=== PATIENT | female | born 1955 | race Caucasian/White ===

== ENCOUNTER 2016-07-18 15:14 | Outpatient (CLI) | payer OTHER | END 2016-07-18 15:15 | disposition home or self-care (01) | DX: Z12.31 Encounter for screening mammogram for malignant neoplasm of breast (principal) ==

== ENCOUNTER 2016-08-05 07:21 | Outpatient (CLI) | payer OTHER | END 2016-08-05 07:22 | disposition home or self-care (01) | DX: E11.65 Type 2 diabetes mellitus with hyperglycemia (principal); E55.9 Vitamin D deficiency, unspecified; Z79.899 Other long term (current) drug therapy ==

== ENCOUNTER 2016-12-29 11:07 | Outpatient (CLI) | payer OTHER ==
--- NOTE | 2016-12-29 13:03 | XRAY Report ---
THREE-VIEW LEFT FOOT: 12/29/2016 CLINICAL INDICATION: Pain. FINDINGS: AP, lateral, oblique views of the left foot demonstrate mild osteoarthritis of the interph alangeal joints. There is no evidence of fracture or dislocation. No radiopaque foreign body is see n in the soft tissues. IMPRESSION: MILD OSTEOARTHRITIS. JOB #: [id number] EXT JOB #:[id number]
== END 2016-12-29 11:08 | disposition home or self-care (01) ==
LOC: DI 11:07
PROVIDERS: ATTEND Nurse Practitioner Primary Care
DX: M19.072 Primary osteoarthritis, left ankle and foot (principal)

== ENCOUNTER 2017-03-03 07:54 | Outpatient (CLI) | payer OTHER ==
[2017-03-03 08:21] LABS: BASOPHILS % (AUTO) 0.6 %; EOSINOPHILS # (AUTO) 0.2 10^3/uL (0.0-0.7); EOSINOPHILS % (AUTO) 2.3 %; HCT - HEMATOCRIT 35.6 % (37.0-47.0); HGB - HEMOGLOBIN 11.9 g/dL (12.0-16.0); LYMPHOCYTES # (AUTO) 2.9 10^3/uL (1.5-3.5); LYMPHOCYTES % (AUTO) 44.2 %; MEAN CORPUSCULAR HEMOGLOBIN 29.9 pg (27.0-31.0); MEAN CORPUSCULAR HGB CONC 33.5 g/dL (32.0-36.0); MEAN CORPUSCULAR VOLUME 89.3 fL (81.0-99.0); MEAN PLATELET VOLUME 7.1 fL (7.9-10.8); MONOCYTES # (AUTO) 0.4 10^3/uL (0.0-1.0); MONOCYTES % (AUTO) 6.5 %; NEUTROPHILS # (AUTO) 3.1 10^3/uL (1.5-6.6); NEUTROPHILS % (AUTO) 46.4 %; RED BLOOD COUNT 3.98 10^6/uL (4.20-5.40); RED CELL DISTRIBUTION WIDTH 13.9 % (12.0-15.0); UNCORRECTED WHITE BLOOD COUNT 6.6 x10^3/uL; WHITE BLOOD COUNT 6.6 x10^3/uL (4.8-10.8)
[2017-03-03 08:39] LABS: HEMOGLOBIN A1C 1.08 g/dL
[2017-03-03 08:41] LABS: BILIRUBIN,TOTAL 0.6 mg/dL (0.2-1.0); BUN - BLOOD UREA NITROGEN 14 mg/dL (6-20); CALCIUM 9.1 mg/dL (8.5-10.3); CARBON DIOXIDE - CO2 27 mmol/L (21-32); CHLORIDE 101 mmol/L (101-111); CHOL/HDL RATIO 4.6 (<4.4); CHOLESTEROL 221 mg/dL; CREATININE 0.7 mg/dL (0.4-1.0); GFR - MDRD 85 (>89); GLUCOSE 172 mg/dL (70-100); HDL CHOLESTEROL 48 mg/dL; POTASSIUM 3.9 mmol/L (3.5-5.0); SODIUM 138 mmol/L (135-145); TOTAL PROTEIN 7.9 g/dL (6.7-8.2); TRIGLYCERIDES 144 mg/dL; VLDL CHOLESTEROL 29 mg/dL
== END 2017-03-03 07:55 | disposition home or self-care (01) ==
LOC: LAB 07:54
PROVIDERS: ATTEND Physician Assistant Medical
DX: R79.89 Other specified abnormal findings of blood chemistry (principal); E55.9 Vitamin D deficiency, unspecified; D53.9 Nutritional anemia, unspecified; E11.9 Type 2 diabetes mellitus without complications; F41.8 Other specified anxiety disorders; E78.5 Hyperlipidemia, unspecified; Z11.59 Encounter for screening for other viral diseases; Z79.899 Other long term (current) drug therapy
CPT/HCPCS: 36415; 80053; 80061; 82306; 83036; 84443; 85025; 86803

== ENCOUNTER 2017-03-07 12:47 | Outpatient (CLI) | payer OTHER ==
[2017-03-07 17:56] LABS: BILIRUBIN,URINE NEGATIVE (NEGATIVE)
[2017-03-07 19:22] LABS: UA w/ MICROSCOPIC CHARGE YES
[2017-03-07 19:23] LABS: UR CULTURE IF IND NOT INDICATED; WBC,URINE 0-3 /HPF (0-5)
== END 2017-03-07 12:48 | disposition home or self-care (01) ==
LOC: LAB.R 12:47
PROVIDERS: ATTEND Physician Assistant Medical
DX: R35.0 Frequency of micturition (principal)
CPT/HCPCS: 81001; 81003; 87086

== ENCOUNTER 2017-04-28 10:04 | Outpatient (CLI) | payer OTHER ==
[2017-04-28 10:44] LABS: CREATININE 0.7 mg/dL (0.4-1.0)
== END 2017-04-28 10:05 | disposition home or self-care (01) ==
LOC: LAB 10:04
PROVIDERS: ATTEND Physician Assistant Medical
DX: E11.65 Type 2 diabetes mellitus with hyperglycemia (principal)
CPT/HCPCS: 36415; 82565; 84520

== ENCOUNTER 2017-05-17 05:57 | Outpatient (CLI) | payer OTHER ==
[2017-05-17 19:02] LABS: HB2 TOTAL 12.4 g/dL; HEMOGLOBIN A1C 0.96 g/dL; HEMOGLOBIN A1C % 9.2 % (4.6-6.2)
== END 2017-05-17 05:58 | disposition home or self-care (01) ==
LOC: LAB.R 05:57
PROVIDERS: ATTEND Physician Assistant Medical
DX: E55.9 Vitamin D deficiency, unspecified (principal); E11.65 Type 2 diabetes mellitus with hyperglycemia; Z79.899 Other long term (current) drug therapy
CPT/HCPCS: 82306; 83036

== ENCOUNTER 2017-06-01 08:00 | Outpatient (CLI) | payer OTHER | END 2017-06-01 08:01 | disposition home or self-care (01) | LOC: LAB.R 08:00 | PROVIDERS: ATTEND Internal Medicine | DX: R05 Cough (principal) | CPT/HCPCS: 87275; 87276 ==

== ENCOUNTER 2017-08-15 09:49 | Outpatient (CLI) | payer OTHER ==
--- NOTE | 2017-08-15 18:07 | Mammography Report ---
DIGITAL SCREENING MAMMOGRAM: 08/15/2017 HISTORY: Benign right breast biopsy for routine screening. COMPARISON: 07/18/2016, 05/05/2015, 04/15/2014, 04/22/2013, 04/26/2012, 2010, and 03/20/2010. TECHNIQUE: Bilateral digital CC and MLO projections. FINDINGS: There are scattered fibroglandular densities. Scattered benign- appearing bilateral calcifications are similar to previous. No dominant mass, architectural distortion, skin thickening, suspicious clustered microcalcifications or obvious interval change is appreciated. IMPRESSION: NEGATIVE. BIRADS category: 1, negative. Suggest return to routine screening in 12 months. STANDARD QUALIFYING STATEMENTS 1. This examination was reviewed with the aid of Computed-Aided Detection (CAD) . 2. A negative or benign imaging report should not delay biopsy if clinically suspicious findings are present. Consider surgical consultation if warranted. More than 5 % of cancers are not identified by imaging. 3. Dense breasts may obscure an underlying neoplasm. TD: 08/15/2017 18:06 SHRUTHI
== END 2017-08-15 09:50 | disposition home or self-care (01) ==
LOC: DI 09:49
PROVIDERS: ATTEND Physician Assistant Medical
DX: Z12.31 Encounter for screening mammogram for malignant neoplasm of breast (principal)
CPT/HCPCS: 77067

== ENCOUNTER 2017-09-26 06:36 | Outpatient (CLI) | payer OTHER ==
[2017-09-26 07:05] LABS: HB2 TOTAL 13.4 g/dL; HEMOGLOBIN A1C 0.88 g/dL; HEMOGLOBIN A1C % 8.2 % (4.6-6.2)
== END 2017-09-26 06:37 | disposition home or self-care (01) ==
LOC: LAB 06:36
PROVIDERS: ATTEND Physician Assistant Medical
DX: E55.9 Vitamin D deficiency, unspecified (principal); E11.65 Type 2 diabetes mellitus with hyperglycemia; Z79.899 Other long term (current) drug therapy
CPT/HCPCS: 36415; 82306; 82947; 83036

== ENCOUNTER 2017-11-27 15:27 | Outpatient (CLI) | payer OTHER ==
--- NOTE | 2017-11-28 16:42 | DEXA Report ---
Procedure Date: 11/27/2017 Accession Number: [id number] / [id number] Procedure: DEX - Dexa Forearm CPT Code: FULL RESULT: EXAM: Dexa Spine and/or Hip, Dexa Forearm DATE: 11/27/2017 4:10 PM CLINICAL HISTORY: POSTMENOPAUSAL TECHNIQUE: Dual energy x-ray absorptiometry (DXA) was performed on a [employer] System. Regions measured are the AP Spine, femoral neck, and if needed forearm. COMPARISON: None. In accordance with the International Society for Clinical Densitometry (ISCD) guidelines, data from previous exams may be reanalyzed using current recommendations and techniques. This is done to allow a more accurate basis for comparison with the current study. FINDINGS: The data for the lumbar spine is as follows: BMD (g/cm/cm) T-SCORE Z-SCORE REGION L1 0.972 -1.3 0.0 L2 1.199 0.0 1.3 L3 1.326 1.0 2.3 L4 1.169 -0.3 1.0 TOTAL 1.168 -0.1 1.2 NOTE: All evaluable vertebrae are used for classification The data for the hip is as follows: BMD (g/cm/cm) T-SCORE Z-SCORE REGION Neck 0.851 -1.3 -0.1 TOTAL 0.914 -0.7 0.2 NOTE: The femoral neck or total proximal femur, whichever is lowest, is used for classification. The data for the left forearm is as follows: BMD (g/cm/cm) T-SCORE Z-SCORE REGION 1/3 76 -2.4 -1.2 NOTE: The 33% radius of the nondominant forearm is used for classification. * Denotes significant change at the 95% confidence level. Denotes dissimilar scan types or analysis methods. IMPRESSION: THE WHO CLASSIFICATION BASED ON THE INTERNATIONAL REFERENCE STANDARD IS OSTEOPENIA. THE FRACTURE RISK IS INCREASED. Please note that comparison to a previously performed DEXA from 2012 is not possible due to differences in equipment. RECOMMENDATION: Patients with diagnosis of osteoporosis or osteopenia should have regular bone mineral density assessment. For those eligible for Medicare, routine testing is allowed once every 2 years. Testing frequency can be increased for patients who have rapidly progressing disease or for those who are receiving medical therapy to restore bone mass. COMMENT: World Health Organization (WHO) definitions for osteoporosis and osteopenia: NORMAL BMD: T-score at -1.0 or higher, fracture risk is low OSTEOPENIA BMD: T-score between -1.0 and -2.5, fracture risk is increased. OSTEOPOROSIS BMD: T-score at -2.5 or lower, fracture risk is high. National Osteoporosis Foundation recommends: 1. Obtain adequate dietary calcium (at least 1200 mg per day) and vitamin D (400-800 international units per day). 2. Participate, as appropriate, in regular weightbearing and muscle-strengthening exercise. 3. Avoid tobacco use and reduce alcohol and caffeine intake. 4. For more detailed information see the website at www.NOF.org.
--- NOTE | 2017-11-28 16:42 | DEXA Report ---
Procedure Date: 11/27/2017 Accession Number: [id number] / [id number] Procedure: DEX - Dexa Spine and/or Hip CPT Code: FULL RESULT: EXAM: Dexa Spine and/or Hip, Dexa Forearm DATE: 11/27/2017 4:10 PM CLINICAL HISTORY: POSTMENOPAUSAL TECHNIQUE: Dual energy x-ray absorptiometry (DXA) was performed on a [employer] System. Regions measured are the AP Spine, femoral neck, and if needed forearm. COMPARISON: None. In accordance with the International Society for Clinical Densitometry (ISCD) guidelines, data from previous exams may be reanalyzed using current recommendations and techniques. This is done to allow a more accurate basis for comparison with the current study. FINDINGS: The data for the lumbar spine is as follows: BMD (g/cm/cm) T-SCORE Z-SCORE REGION L1 0.972 -1.3 0.0 L2 1.199 0.0 1.3 L3 1.326 1.0 2.3 L4 1.169 -0.3 1.0 TOTAL 1.168 -0.1 1.2 NOTE: All evaluable vertebrae are used for classification The data for the hip is as follows: BMD (g/cm/cm) T-SCORE Z-SCORE REGION Neck 0.851 -1.3 -0.1 TOTAL 0.914 -0.7 0.2 NOTE: The femoral neck or total proximal femur, whichever is lowest, is used for classification. The data for the left forearm is as follows: BMD (g/cm/cm) T-SCORE Z-SCORE REGION 1/3 76 -2.4 -1.2 NOTE: The 33% radius of the nondominant forearm is used for classification. * Denotes significant change at the 95% confidence level. Denotes dissimilar scan types or analysis methods. IMPRESSION: THE WHO CLASSIFICATION BASED ON THE INTERNATIONAL REFERENCE STANDARD IS OSTEOPENIA. THE FRACTURE RISK IS INCREASED. Please note that comparison to a previously performed DEXA from 2012 is not possible due to differences in equipment. RECOMMENDATION: Patients with diagnosis of osteoporosis or osteopenia should have regular bone mineral density assessment. For those eligible for Medicare, routine testing is allowed once every 2 years. Testing frequency can be increased for patients who have rapidly progressing disease or for those who are receiving medical therapy to restore bone mass. COMMENT: World Health Organization (WHO) definitions for osteoporosis and osteopenia: NORMAL BMD: T-score at -1.0 or higher, fracture risk is low OSTEOPENIA BMD: T-score between -1.0 and -2.5, fracture risk is increased. OSTEOPOROSIS BMD: T-score at -2.5 or lower, fracture risk is high. National Osteoporosis Foundation recommends: 1. Obtain adequate dietary calcium (at least 1200 mg per day) and vitamin D (400-800 international units per day). 2. Participate, as appropriate, in regular weightbearing and muscle-strengthening exercise. 3. Avoid tobacco use and reduce alcohol and caffeine intake. 4. For more detailed information see the website at www.NOF.org.
== END 2017-11-27 15:28 | disposition home or self-care (01) ==
LOC: DI 15:27
PROVIDERS: ATTEND Physician Assistant Medical
DX: M85.89 Other specified disorders of bone density and structure, multiple sites (principal); R79.89 Other specified abnormal findings of blood chemistry; E55.9 Vitamin D deficiency, unspecified
CPT/HCPCS: 77080; 77081

== ENCOUNTER 2018-02-08 06:36 | Outpatient (CLI) | payer OTHER ==
[2018-02-08 06:56] LABS: BASOPHILS % (AUTO) 0.6 %; EOSINOPHILS # (AUTO) 0.2 10^3/uL (0.0-0.7); EOSINOPHILS % (AUTO) 3.2 %; LYMPHOCYTES # (AUTO) 2.3 10^3/uL (1.5-3.5); LYMPHOCYTES % (AUTO) 43.2 %; MEAN CORPUSCULAR HGB CONC 33.6 g/dL (32.0-36.0); MEAN CORPUSCULAR VOLUME 89.2 fL (81.0-99.0); MONOCYTES # (AUTO) 0.4 10^3/uL (0.0-1.0); MONOCYTES % (AUTO) 7.7 %; NEUTROPHILS # (AUTO) 2.4 10^3/uL (1.5-6.6); NEUTROPHILS % (AUTO) 45.3 %; PLT - PLATELET COUNT 219 10^3/uL (130-450); RED BLOOD COUNT 4.01 10^6/uL (4.20-5.40); RED CELL DISTRIBUTION WIDTH 13.8 % (12.0-15.0); WHITE BLOOD COUNT 5.3 x10^3/uL (4.8-10.8)
[2018-02-08 07:14] LABS: ALBUMIN 3.8 g/dL (3.2-5.5); ALBUMIN/GLOBULIN RATIO 0.9 (1.0-2.2); ALKALINE PHOSPHATASE 101 IU/L (42-121); ALT ALANINE AMINOTRANSFERASE 34 IU/L (10-60); AST ASPARTATE AMINOTRANSFERASE 31 IU/L (10-42); BILIRUBIN,TOTAL 0.6 mg/dL (0.2-1.0); BUN - BLOOD UREA NITROGEN 18 mg/dL (6-20); CALCIUM 9.1 mg/dL (8.5-10.3); CARBON DIOXIDE - CO2 29 mmol/L (21-32); CHLORIDE 102 mmol/L (101-111); CHOL/HDL RATIO 4.5 (<4.4); CHOLESTEROL 228 mg/dL; CREATININE 0.9 mg/dL (0.4-1.0); GFR - MDRD 63 (>89); GLUCOSE 152 mg/dL (70-100); HDL CHOLESTEROL 51 mg/dL; LDL CHOLESTEROL,CALCULATED 148 mg/dL; LDL/HDL RATIO 2.9 (<4.4); SODIUM 139 mmol/L (135-145); TOTAL PROTEIN 7.9 g/dL (6.7-8.2); VLDL CHOLESTEROL 29 mg/dL
[2018-02-08 07:26] LABS: THYROID STIMULATING HORMONE 4.43 uIU/mL (0.34-5.60)
[2018-02-08 07:43] LABS: HB2 TOTAL 12.7 g/dL; HEMOGLOBIN A1C 0.98 g/dL; HEMOGLOBIN A1C % 9.2 % (4.6-6.2)
== END 2018-02-08 06:37 | disposition home or self-care (01) ==
LOC: LAB 06:36
PROVIDERS: ATTEND Physician Assistant Medical
DX: Z00.00 Encounter for general adult medical examination without abnormal findings (principal); E11.9 Type 2 diabetes mellitus without complications; E78.2 Mixed hyperlipidemia; E55.9 Vitamin D deficiency, unspecified; Z79.899 Other long term (current) drug therapy
CPT/HCPCS: 36415; 80053; 80061; 82306; 83036; 83721; 83970; 84443; 85025

== ENCOUNTER 2018-07-10 08:11 | Outpatient (CLI) | payer BC ==
[2018-07-10 09:48] LABS: HB2 TOTAL 13.1 g/dL; HEMOGLOBIN A1C 1.03 g/dL; HEMOGLOBIN A1C % 9.3 % (4.6-6.2)
== END 2018-07-10 08:12 | disposition home or self-care (01) ==
LOC: LAB 08:11
PROVIDERS: ATTEND Physician Assistant Medical
DX: E11.65 Type 2 diabetes mellitus with hyperglycemia (principal); Z79.899 Other long term (current) drug therapy
CPT/HCPCS: 36415; 82043; 82947; 83036

== ENCOUNTER 2018-10-31 10:06 | Outpatient (CLI) | payer BC ==
[2018-10-31 10:43] LABS: HB2 TOTAL 11.8 g/dL; HEMOGLOBIN A1C 0.93 g/dL; HEMOGLOBIN A1C % 9.4 % (4.6-6.2)
== END 2018-10-31 10:07 | disposition home or self-care (01) ==
LOC: LAB 10:06
PROVIDERS: ATTEND Registered Nurse
DX: E11.9 Type 2 diabetes mellitus without complications (principal)
CPT/HCPCS: 36415; 83036

== ENCOUNTER 2019-01-25 08:45 | Outpatient (CLI) | payer BC ==
[2019-01-25 09:24] LABS: ALBUMIN 3.7 g/dL (3.2-5.5); ALBUMIN/GLOBULIN RATIO 0.9 (1.0-2.2); ALKALINE PHOSPHATASE 95 IU/L (42-121); ALT ALANINE AMINOTRANSFERASE 24 IU/L (10-60); AST ASPARTATE AMINOTRANSFERASE 23 IU/L (10-42); BILIRUBIN,TOTAL 0.7 mg/dL (0.2-1.0); BUN - BLOOD UREA NITROGEN 13 mg/dL (6-20); CARBON DIOXIDE - CO2 28 mmol/L (21-32); CHLORIDE 105 mmol/L (101-111); CHOL/HDL RATIO 3.2 (<4.4); CHOLESTEROL 156 mg/dL; CREATININE 0.7 mg/dL (0.4-1.0); GFR - MDRD 84 (>89); GLUCOSE 139 mg/dL (70-100); HDL CHOLESTEROL 49 mg/dL; LDL CHOLESTEROL,CALCULATED 89 mg/dL; LDL/HDL RATIO 1.8 (<4.4); SODIUM 142 mmol/L (135-145); TOTAL PROTEIN 7.7 g/dL (6.7-8.2); VLDL CHOLESTEROL 18 mg/dL
[2019-01-25 09:25] LABS: HB2 TOTAL 11.9 g/dL; HEMOGLOBIN A1C 0.92 g/dL; HEMOGLOBIN A1C % 9.2 % (4.6-6.2)
== END 2019-01-25 08:46 | disposition home or self-care (01) ==
LOC: LAB 08:45
PROVIDERS: ATTEND Registered Nurse
DX: E11.9 Type 2 diabetes mellitus without complications (principal); E55.9 Vitamin D deficiency, unspecified
CPT/HCPCS: 36415; 80053; 80061; 82306; 83036; 83721

== ENCOUNTER 2019-07-31 06:39 | Outpatient (CLI) | payer BC ==
[2019-07-31 08:45] LABS: HB2 TOTAL 11.7 g/dL; HEMOGLOBIN A1C 0.84 g/dL; HEMOGLOBIN A1C % 8.7 % (4.6-6.2)
[2019-07-31 09:02] LABS: ALBUMIN 3.6 g/dL (3.2-5.5); ALBUMIN/GLOBULIN RATIO 0.9 (1.0-2.2); ALKALINE PHOSPHATASE 96 IU/L (42-121); ALT ALANINE AMINOTRANSFERASE 17 IU/L (10-60); AST ASPARTATE AMINOTRANSFERASE 20 IU/L (10-42); BILIRUBIN,TOTAL 0.5 mg/dL (0.2-1.0); BUN - BLOOD UREA NITROGEN 18 mg/dL (6-20); CARBON DIOXIDE - CO2 27 mmol/L (21-32); CHLORIDE 104 mmol/L (101-111); CHOL/HDL RATIO 3.7 (<4.4); CHOLESTEROL 161 mg/dL; CREATININE 0.7 mg/dL (0.4-1.0); GLUCOSE 137 mg/dL (70-100); HDL CHOLESTEROL 43 mg/dL; LDL CHOLESTEROL,CALCULATED 96 mg/dL; LDL/HDL RATIO 2.2 (<4.4); SODIUM 140 mmol/L (135-145); TOTAL PROTEIN 7.6 g/dL (6.7-8.2); VLDL CHOLESTEROL 22 mg/dL
== END 2019-07-31 06:40 | disposition home or self-care (01) ==
LOC: LAB 06:39
PROVIDERS: ATTEND Physician Assistant
DX: I10 Essential (primary) hypertension (principal); E21.3 Hyperparathyroidism, unspecified; E78.2 Mixed hyperlipidemia; E11.65 Type 2 diabetes mellitus with hyperglycemia
CPT/HCPCS: 36415; 80053; 80061; 83036; 83721; 83970

== ENCOUNTER 2019-11-05 06:31 | Outpatient (CLI) | payer BC ==
[2019-11-05 07:04] LABS: ALBUMIN 3.8 g/dL (3.2-5.5); ALBUMIN/GLOBULIN RATIO 1.1 (1.0-2.2); CREATININE 0.6 mg/dL (0.4-1.0); TOTAL PROTEIN 7.4 g/dL (6.7-8.2)
[2019-11-05 11:16] LABS: HB2 TOTAL 11.9 g/dL; HEMOGLOBIN A1C 0.88 g/dL; HEMOGLOBIN A1C % 8.9 % (4.6-6.2)
== END 2019-11-05 06:32 | disposition home or self-care (01) ==
LOC: LAB 06:31
PROVIDERS: ATTEND Physician Assistant
DX: E11.65 Type 2 diabetes mellitus with hyperglycemia (principal)
CPT/HCPCS: 36415; 80053; 83036

== ENCOUNTER 2019-11-14 16:12 | Outpatient (CLI) | payer BC ==
--- NOTE | 2019-11-18 13:23 | Mammography Report ---
BILATERAL DIGITAL SCREENING MAMMOGRAM 3D/2D: 11/14/2019 CLINICAL: Routine screening. Comparison is made to exams dated: 08/15/2017 mammogram, 07/18/2016 mammogram, and 05/05/2015 mammogram - [facility]. There are scattered fibroglandular elements in both breasts. No significant masses, calcifications, or other findings are seen in either breast. There has been no significant interval change. IMPRESSION: NEGATIVE There is no mammographic evidence of malignancy. A 1 year screening mammogram is recommended. This exam was interpreted at Station ID: [id number]. NOTE: For mammograms, a report in lay terms will be sent to the patient. Approximately 15% of breast malignancies will not be visualized mammographically. In the management of a palpable breast mass, a negative mammogram must not discourage biopsy of a clinically suspicious lesion. Electronically Signed By: Obi Ovalles M.D. slc/penrad:11/14/2019 19:10:46 ACR BI-RADS Category 1: Negative 3341F PARENCHYMAL PATTERN: (A) - The breast(s) demonstrate(s) scattered fibroglandular densities. BI-RADS CATEGORY: (1) - 1 RECOMMENDATION: (ANNUAL) - Recommend routine annual screening mammography. [id number] 1 year screening LATERALITY: (B)
== END 2019-11-14 16:13 | disposition home or self-care (01) ==
LOC: DI 16:12
PROVIDERS: ATTEND Registered Nurse
DX: Z12.31 Encounter for screening mammogram for malignant neoplasm of breast (principal)
CPT/HCPCS: 77063; 77067

== ENCOUNTER 2020-01-31 07:39 | Outpatient (CLI) | payer BC ==
--- NOTE | 2020-01-31 16:44 | DEXA Report ---
PROCEDURE: Dexa Spine and/or Hip INDICATIONS: HYPERPARATHYROIDISM TECHNIQUE: Dual energy x-ray absorptiometry (DXA) was performed on a [employer] System. Regions measur ed are the AP Spine, femoral neck, and if needed forearm. COMPARISON: DEXA 11/27/2017 FINDINGS: Lumbar Spine: Bone Mineral Density 1.087 g/cm/cm,T score -0.8, compared to -1.0 on prior exam. Left Hip: Bone Mineral Density 0.911 g/cm/cm,T score -0.8, compared to -0.7 on prior exam. Left Femoral Neck: Bone Mineral Density 0.838 g/cm/cm, T score -1.4, compared to -1.3 on prior exam. Left forearm total: Bone Mineral Density 0.5-3 g/cm/cm, T score -2.5, compared to -2.5 on prior exam. (T score greater or equal to -1.0: NORMAL) (T score from -1.1 to -2.4: OSTEOPENIA) (T score less than or equal to -2.5 to: OSTEOPOROSIS) Impression: Persistent relatively stable osteoporosis within the forearm. Patients with diagnosis of osteoporosis or osteopenia should have regular bone mineral density assess ment. For those eligible for Medicare, routine testing is allowed once every 2 years. Testing frequ ency can be increased for patients who have rapidly progressing disease or for those who are receivin g medical therapy to restore bone mass. Reviewed by: Christine Torres MD on 01/31/2020 4:42 PM PDT Approved by: Christine Torres MD on 01/31/2020 4:42 PM PDT Station ID: [id number]
== END 2020-01-31 07:40 | disposition home or self-care (01) ==
LOC: DI 07:39
PROVIDERS: ATTEND Registered Nurse
DX: E21.3 Hyperparathyroidism, unspecified (principal); M81.0 Age-related osteoporosis without current pathological fracture
CPT/HCPCS: 77080; 77081

== ENCOUNTER 2020-02-27 12:12 | Outpatient (CLI) | payer BC | END 2020-02-27 12:13 | disposition home or self-care (01) | LOC: LAB 12:12 | PROVIDERS: ATTEND Nurse Practitioner Family | DX: R35.0 Frequency of micturition (principal) | CPT/HCPCS: 87086 ==

== ENCOUNTER 2020-03-19 10:36 | Outpatient (CLI) | payer BC ==
[2020-03-19 13:32] LABS: BASOPHILS % (AUTO) 0.6 %; EOSINOPHILS # (AUTO) 0.2 10^3/uL (0.0-0.7); EOSINOPHILS % (AUTO) 3.4 %; LYMPHOCYTES # (AUTO) 3.5 10^3/uL (1.5-3.5); LYMPHOCYTES % (AUTO) 48.7 %; MEAN CORPUSCULAR HEMOGLOBIN 29.6 pg (27.0-31.0); MEAN CORPUSCULAR HGB CONC 32.2 g/dL (32.0-36.0); MEAN CORPUSCULAR VOLUME 92.2 fL (81.0-99.0); MEAN PLATELET VOLUME 8.8 fL (7.9-10.8); MONOCYTES # (AUTO) 0.5 10^3/uL (0.0-1.0); NEUTROPHILS # (AUTO) 2.9 10^3/uL (1.5-6.6); PLT - PLATELET COUNT 214 10^3/uL (130-450); RED BLOOD COUNT 3.71 10^6/uL (4.20-5.40); RED CELL DISTRIBUTION WIDTH 13.2 % (12.0-15.0); WHITE BLOOD COUNT 7.1 x10^3/uL (4.8-10.8)
[2020-03-23 12:01] LABS: HEMOGLOBIN A1c% 8.6 % (4.27-6.07)
== END 2020-03-19 10:37 | disposition home or self-care (01) ==
LOC: LAB 10:36
PROVIDERS: ATTEND Nurse Practitioner
DX: R25.1 Tremor, unspecified (principal); D53.9 Nutritional anemia, unspecified; E11.65 Type 2 diabetes mellitus with hyperglycemia; R79.89 Other specified abnormal findings of blood chemistry; E55.9 Vitamin D deficiency, unspecified
CPT/HCPCS: 36415; 80053; 82306; 83036; 85025

== ENCOUNTER 2020-06-02 07:43 | Outpatient (CLI) | payer BC ==
[2020-06-02 08:14] LABS: ALBUMIN 4.1 g/dL (3.2-5.5); BILIRUBIN,TOTAL 0.8 mg/dL (0.2-1.0); CALCIUM 9.2 mg/dL (8.5-10.3); CREATININE 0.7 mg/dL (0.4-1.0); TOTAL PROTEIN 8.2 g/dL (6.7-8.2)
== END 2020-06-02 07:44 | disposition home or self-care (01) ==
LOC: LAB 07:43
PROVIDERS: ATTEND Nurse Practitioner
DX: E55.9 Vitamin D deficiency, unspecified (principal); R25.1 Tremor, unspecified; R79.89 Other specified abnormal findings of blood chemistry; D53.9 Nutritional anemia, unspecified; E11.65 Type 2 diabetes mellitus with hyperglycemia; Z79.899 Other long term (current) drug therapy
CPT/HCPCS: 36415; 80053; 82306; 83036

== ENCOUNTER 2020-06-08 08:00 | Outpatient (CLI) | payer BC ==
[2020-06-08 12:34] LABS: BILIRUBIN,URINE NEGATIVE (NEGATIVE); GLUCOSE, URINE (UA) >=1000 mg/dL (NEGATIVE); KETONES,URINE (UA) NEGATIVE (NEGATIVE); LEUKOCYTE ESTERASE, URINE NEGATIVE (NEGATIVE); NITRITE,URINE NEGATIVE (NEGATIVE); OCCULT BLOOD,URINE NEGATIVE (NEGATIVE); PH,URINE 5.5 PH (5.0-7.5); PROTEIN,URINE NEGATIVE (NEGATIVE); UROBILINOGEN,URINE 0.2 (NORMAL) E.U./dL (NORMAL)
[2020-06-08 12:35] LABS: CLARITY,URINE CLEAR (CLEAR)
[2020-06-08 12:45] LABS: RBC,URINE 0-5 /HPF (0-5); SQUAMOUS EPITHELIAL CELL,UR FEW Squamous (<= Few)
[2020-06-08 12:46] LABS: BACTERIA,URINE Few /HPF (None Seen)
== END 2020-06-08 23:59 | disposition home or self-care (01) ==
LOC: LAB.R 08:00
PROVIDERS: ATTEND Nurse Practitioner
DX: R30.0 Dysuria (principal)
CPT/HCPCS: 81001; 87086

== ENCOUNTER 2020-08-20 07:33 | Outpatient (CLI) | payer BC ==
[2020-08-20 08:05] LABS: BASOPHILS % (AUTO) 0.5 %; EOSINOPHILS # (AUTO) 0.2 10^3/uL (0.0-0.7); EOSINOPHILS % (AUTO) 3.1 %; HCT - HEMATOCRIT 35.3 % (37.0-47.0); HGB - HEMOGLOBIN 11.1 g/dL (12.0-16.0); LYMPHOCYTES # (AUTO) 2.5 10^3/uL (1.5-3.5); LYMPHOCYTES % (AUTO) 44.1 %; MEAN CORPUSCULAR HEMOGLOBIN 29.5 pg (27.0-31.0); MEAN CORPUSCULAR HGB CONC 31.4 g/dL (32.0-36.0); MEAN CORPUSCULAR VOLUME 93.9 fL (81.0-99.0); MEAN PLATELET VOLUME 9.2 fL (7.9-10.8); MONOCYTES # (AUTO) 0.4 10^3/uL (0.0-1.0); MONOCYTES % (AUTO) 7.2 %; NEUTROPHILS # (AUTO) 2.5 10^3/uL (1.5-6.6); NEUTROPHILS % (AUTO) 44.9 %; PLT - PLATELET COUNT 243 10^3/uL (130-450); RED BLOOD COUNT 3.76 10^6/uL (4.20-5.40); RED CELL DISTRIBUTION WIDTH 13.5 % (12.0-15.0); WHITE BLOOD COUNT 5.6 x10^3/uL (4.8-10.8)
[2020-08-20 08:27] LABS: ALBUMIN 3.9 g/dL (3.2-5.5); BILIRUBIN,TOTAL 0.5 mg/dL (0.2-1.0); CALCIUM 9.3 mg/dL (8.5-10.3); CREATININE 0.7 mg/dL (0.4-1.0)
[2020-08-20 10:19] LABS: ESTIMATED AVERAGE GLUCOSE 189 mg/dL (70-100); HEMOGLOBIN A1c% 8.2 % (4.27-6.07)
== END 2020-08-20 07:34 | disposition home or self-care (01) ==
LOC: LAB 07:33
PROVIDERS: ATTEND Nurse Practitioner
DX: E11.8 Type 2 diabetes mellitus with unspecified complications (principal); Z79.899 Other long term (current) drug therapy; D53.9 Nutritional anemia, unspecified; E55.9 Vitamin D deficiency, unspecified
CPT/HCPCS: 36415; 80053; 82306; 82728; 83036; 83540; 84466; 85025

== ENCOUNTER 2020-11-06 14:27 | Outpatient (CLI) | payer BC ==
[2020-11-06 15:21] LABS: THYROID STIMULATING HORMONE 2.8 uIU/mL (0.34-5.60)
[2020-11-06 15:32] LABS: FOLATE 16.31 ng/mL (5.90 - >24.8)
[2020-11-10 14:42] LABS: ALBUMIN 3.7 g/dL (3.8-4.8); ALPHA 1 GLOBULIN 0.3 g/dL (0.2-0.3); ALPHA 2 GLOBULIN 0.8 g/dL (0.5-0.9); BETA 1 GLOBULIN 0.6 g/dL (0.4-0.6); BETA 2 GLOBULIN 0.6 g/dL (0.2-0.5); GAMMA GLOBULIN 1.2 g/dL (0.8-1.7)
== END 2020-11-06 14:28 | disposition home or self-care (01) ==
LOC: LAB 14:27
PROVIDERS: ATTEND Psychiatry & Neurology Neurology
DX: R25.1 Tremor, unspecified (principal)
CPT/HCPCS: 36415; 81599; 82607; 82746; 83921; 84155; 84165; 84443; 86334

== ENCOUNTER 2020-11-25 07:38 | Outpatient (CLI) | payer BC ==
[2020-11-25 09:08] LABS: CALCIUM 8.7 mg/dL (8.5-10.3); CREATININE 0.6 mg/dL (0.4-1.0); POTASSIUM 4.3 mmol/L (3.5-5.0)
[2020-11-25 12:00] LABS: ESTIMATED AVERAGE GLUCOSE 189 mg/dL (70-100); HEMOGLOBIN A1c% 8.2 % (4.27-6.07)
== END 2020-11-25 07:39 | disposition home or self-care (01) ==
LOC: LAB 07:38
PROVIDERS: ATTEND Family Medicine
DX: E11.8 Type 2 diabetes mellitus with unspecified complications (principal); R03.0 Elevated blood-pressure reading, without diagnosis of hypertension; E55.9 Vitamin D deficiency, unspecified
CPT/HCPCS: 36415; 80048; 83036

== ENCOUNTER 2021-01-27 16:26 | Outpatient (CLI) | payer BC ==
--- NOTE | 2021-01-27 16:54 | XRAY Report ---
PROCEDURE: Foot 3 View BILAT INDICATIONS: BILATERAL FOOT PAIN TECHNIQUE: 6 views of the foot were acquired. COMPARISON: Left foot radiograph dated 12/29/2016 FINDINGS: Bones: There is mild bilateral hallux valgus. Mild osteoarthritic changes in bilateral first MTP rafael nts are seen worse on the right side. Osteoarthritic changes also noted involving bilateral first thr ough fifth interphalangeal joints. Bilateral plantar calcaneal enthesophyte. No fractures or dislocat ions. No suspicious bony lesions. Soft tissues: No tibiotalar joint effusion. Achilles tendon appears normal. IMPRESSION: Mild bilateral hallux valgus and bilateral forefoot joint osteoarthritis more prominent in bilateral first MTP joints. No fracture or dislocation. Small bilateral plantar calcaneal enthesophytes. Reviewed by: Zachary Lloyd MD on 01/27/2021 4:53 PM PDT Approved by: Zachary Lloyd MD on 01/27/2021 4:53 PM PDT Station ID: [id number]
== END 2021-01-27 16:27 | disposition home or self-care (01) ==
LOC: DI 16:26
PROVIDERS: ATTEND Podiatrist
DX: M19.072 Primary osteoarthritis, left ankle and foot (principal); M19.071 Primary osteoarthritis, right ankle and foot; M20.12 Hallux valgus (acquired), left foot; M20.11 Hallux valgus (acquired), right foot; M77.32 Calcaneal spur, left foot; M77.31 Calcaneal spur, right foot

== ENCOUNTER 2021-05-17 06:42 | Outpatient (CLI) | payer BC ==
[2021-05-17 07:12] LABS: CHOL/HDL RATIO 3.8 (<4.4); CHOLESTEROL 199 mg/dL; HDL CHOLESTEROL 52 mg/dL; LDL CHOLESTEROL,CALCULATED 125 mg/dL; LDL/HDL RATIO 2.4 (<4.4); TRIGLYCERIDES 110 mg/dL; VLDL CHOLESTEROL 22 mg/dL
[2021-05-17 09:20] LABS: ESTIMATED AVERAGE GLUCOSE 194 mg/dL (70-100); HEMOGLOBIN A1c% 8.4 % (4.27-6.07)
== END 2021-05-17 06:43 | disposition home or self-care (01) ==
LOC: LAB 06:42
PROVIDERS: ATTEND Nurse Practitioner
DX: E11.42 Type 2 diabetes mellitus with diabetic polyneuropathy (principal); E78.2 Mixed hyperlipidemia; E11.8 Type 2 diabetes mellitus with unspecified complications
CPT/HCPCS: 36415; 80061; 83036; 83721

== ENCOUNTER 2021-05-31 07:30 | Outpatient (CLI) | payer BC ==
--- NOTE | 2021-06-01 08:19 | Mammography Report ---
BILATERAL DIGITAL SCREENING MAMMOGRAM 3D/2D: 05/31/2021 CLINICAL: Routine screening. Comparison is made to exams dated: 11/14/2019 mammogram, 08/15/2017 mammogram, 07/18/2016 mammogram, 05/05 mammogram, 04/15/2014 mammogram, and 04/22/2013 mammogram - [facility]. There are scattered fibroglandular elements in both breasts. No significant masses, calcifications, or other findings are seen in either breast. There has been no significant interval change. IMPRESSION: NEGATIVE There is no mammographic evidence of malignancy. A 1 year screening mammogram is recommended. This exam was interpreted at Station ID: [id number]. NOTE: For mammograms, a report in lay terms will be sent to the patient. Approximately 15% of breast malignancies will not be visualized mammographically. In the management of a palpable breast mass, a negative mammogram must not discourage biopsy of a clinically suspicious lesion. Electronically Signed By: Edwin bernal/maki:05/31/2021 09:39:59 ACR BI-RADS Category 1: Negative 3341F PARENCHYMAL PATTERN: (A) - The breast(s) demonstrate(s) scattered fibroglandular densities. BI-RADS CATEGORY: (1) - 1 RECOMMENDATION: (ANNUAL) - Recommend routine annual screening mammography. [id number] 1 year screening LATERALITY: (B)
== END 2021-05-31 07:31 | disposition home or self-care (01) ==
LOC: DI 07:30
DX: Z12.31 Encounter for screening mammogram for malignant neoplasm of breast (principal)

== ENCOUNTER 2021-08-18 07:25 | Outpatient (CLI) | payer BC ==
[2021-08-18 10:17] LABS: ESTIMATED AVERAGE GLUCOSE 171 mg/dL (70-100); HEMOGLOBIN A1c% 7.6 % (4.27-6.07)
== END 2021-08-18 07:26 | disposition home or self-care (01) ==
LOC: LAB 07:25
PROVIDERS: ATTEND Nurse Practitioner
DX: E11.40 Type 2 diabetes mellitus with diabetic neuropathy, unspecified (principal)
CPT/HCPCS: 36415; 83036

== ENCOUNTER 2021-10-22 11:41 | Outpatient (CLI) | payer BC ==
[2021-10-22 12:44] LABS: BASOPHILS # (AUTO) 0.1 10^3/uL (0.0-0.1); BASOPHILS % (AUTO) 0.7 %; EOSINOPHILS # (AUTO) 0.2 10^3/uL (0.0-0.7); EOSINOPHILS % (AUTO) 2.1 %; HCT - HEMATOCRIT 36.4 % (37.0-47.0); HGB - HEMOGLOBIN 11.6 g/dL (12.0-16.0); LYMPHOCYTES # (AUTO) 3.1 10^3/uL (1.5-3.5); LYMPHOCYTES % (AUTO) 41.2 %; MEAN CORPUSCULAR HEMOGLOBIN 30.3 pg (27.0-31.0); MEAN CORPUSCULAR HGB CONC 31.9 g/dL (32.0-36.0); MEAN PLATELET VOLUME 8.9 fL (7.9-10.8); MONOCYTES # (AUTO) 0.6 10^3/uL (0.0-1.0); MONOCYTES % (AUTO) 7.3 %; NEUTROPHILS # (AUTO) 3.6 10^3/uL (1.5-6.6); NEUTROPHILS % (AUTO) 48.4 %; PLT - PLATELET COUNT 221 10^3/uL (130-450); RED BLOOD COUNT 3.83 10^6/uL (4.20-5.40); RED CELL DISTRIBUTION WIDTH 12.8 % (12.0-15.0); WHITE BLOOD COUNT 7.5 x10^3/uL (4.8-10.8)
[2021-10-22 13:14] LABS: THYROID STIMULATING HORMONE 3.27 uIU/mL (0.34-5.60)
== END 2021-10-22 11:42 | disposition home or self-care (01) ==
LOC: LAB 11:41
PROVIDERS: ATTEND Psychiatry & Neurology Neurology
DX: G25.2 Other specified forms of tremor (principal); R53.82 Chronic fatigue, unspecified
CPT/HCPCS: 36415; 82607; 82746; 83921; 84443; 85025

== ENCOUNTER 2022-03-02 12:44 | Outpatient (CLI) | payer BC ==
[2022-03-02 19:57] LABS: ESTIMATED AVERAGE GLUCOSE 177 mg/dL (70-100); HEMOGLOBIN A1c% 7.8 % (4.27-6.07)
== END 2022-03-02 12:45 | disposition home or self-care (01) ==
LOC: LAB 12:44
PROVIDERS: ATTEND Nurse Practitioner
DX: E11.8 Type 2 diabetes mellitus with unspecified complications (principal)
CPT/HCPCS: 36415; 83036

== ENCOUNTER 2022-05-31 13:23 | Outpatient (CLI) | payer BC ==
--- NOTE | 2022-05-31 15:49 | DEXA Report ---
PROCEDURE: Dexa Spine and/or Hip INDICATIONS: POSTMENOPAUSAL TECHNIQUE: Dual energy x-ray absorptiometry (DXA) was performed on a [employer] System. Regions measur ed are the AP Spine, femoral neck, and if needed forearm. COMPARISON: None. FINDINGS: Lumbar Spine: Bone Mineral Density 1.113 g/cm/cm,T score -0.6, normal Left Femoral Neck: Bone Mineral Density 0.811 g/cm/cm, T score -1.6, osteopenia Total Hip: Bone Mineral Density 0.915 g/cm/cm,T score -0.7, normal Left forearm: Bone Mineral Density 0.644 g/cm/cm, T score -2.6, osteoporosis (T score greater or equal to -1.0: NORMAL) (T score from -1.1 to -2.4: OSTEOPENIA) (T score less than or equal to -2.5 to: OSTEOPOROSIS) IMPRESSION: 1. Osteoporosis. 2. No statistically significant change compared to prior. Patients with diagnosis of osteoporosis or osteopenia should have regular bone mineral density assess ment. For those eligible for Medicare, routine testing is allowed once every 2 years. Testing frequ ency can be increased for patients who have rapidly progressing disease or for those who are receivin g medical therapy to restore bone mass. Reviewed by: Santi Qiu on 05/31/2022 3:47 PM PST Approved by: Santi Qiu on 05/31/2022 3:47 PM PST Station ID: [id number]
== END 2022-05-31 13:24 | disposition home or self-care (01) ==
LOC: DI 13:23
PROVIDERS: ATTEND Nurse Practitioner
DX: Z78.0 Asymptomatic menopausal state (principal); M81.0 Age-related osteoporosis without current pathological fracture

== ENCOUNTER 2022-05-31 13:23 | Outpatient (CLI) | payer BC ==
--- NOTE | 2022-06-01 11:56 | Mammography Report ---
BILATERAL DIGITAL SCREENING MAMMOGRAM 3D/2D: 05/31/2022 CLINICAL: Routine screening. Comparison is made to exams dated: 05/31/2021 mammogram, 11/14/2019 mammogram, 08/15/2017 mammogram, 2016 mammogram, and 05/05/2015 mammogram - [facility]. There are scattered areas of fibroglandular density in both breasts (category b / 25%-50% glandular t issue). There are benign post operative findings in the right breast. No significant masses, calcifications, or other findings are seen in either breast. There has been no significant interval change. IMPRESSION: BENIGN There is no mammographic evidence of malignancy. A 1 year screening mammogram is recommended. Based on the Tyrer Cuzick model (a risk assessment model) the patients lifetime risk is 4.2% and her 10 year risk is 2.2%. According to the ACR, ACS, and NCCN guidelines, an annual breast MRI exam elton g with mammogram is recommended if the patients lifetime risk is 20% or greater. This exam was interpreted at Station ID: [id number]. NOTE: For mammograms, a report in lay terms will be sent to the patient. Approximately 15% of breast malignancies will not be visualized mammographically. In the management of a palpable breast mass, a negative mammogram must not discourage biopsy of a clinically suspicious lesion. Electronically Signed By: Brisa monroe/maki:05/31/2022 18:09:19 ACR BI-RADS Category 2: Benign Finding(s) 3342F PARENCHYMAL PATTERN: (A) - The breast(s) demonstrate(s) scattered fibroglandular densities. BI-RADS CATEGORY: (2) - 2 RECOMMENDATION: (ANNUAL) - Recommend routine annual screening mammography. [id number] 1 year screening LATERALITY: (B)
== END 2022-05-31 13:24 | disposition home or self-care (01) ==
LOC: DI 13:23
PROVIDERS: ATTEND Nurse Practitioner
DX: Z12.31 Encounter for screening mammogram for malignant neoplasm of breast (principal)

== ENCOUNTER 2022-08-11 10:30 | Outpatient (CLI) | payer MEDICARE, OTHER ==
[2022-08-11 11:06] LABS: BASOPHILS % (AUTO) 0.4 %; EOSINOPHILS # (AUTO) 0.1 10^3/uL (0.0-0.7); EOSINOPHILS % (AUTO) 1.2 %; HCT - HEMATOCRIT 36.9 % (37.0-47.0); HGB - HEMOGLOBIN 11.3 g/dL (12.0-16.0); LYMPHOCYTES % (AUTO) 36.5 %; MEAN CORPUSCULAR HEMOGLOBIN 28.8 pg (27.0-31.0); MEAN CORPUSCULAR HGB CONC 30.6 g/dL (32.0-36.0); MEAN CORPUSCULAR VOLUME 94.1 fL (81.0-99.0); MEAN PLATELET VOLUME 8.9 fL (7.9-10.8); MONOCYTES # (AUTO) 0.5 10^3/uL (0.0-1.0); MONOCYTES % (AUTO) 6.5 %; NEUTROPHILS # (AUTO) 4.5 10^3/uL (1.5-6.6); NEUTROPHILS % (AUTO) 55.2 %; PLT - PLATELET COUNT 229 10^3/uL (130-450); RED BLOOD COUNT 3.92 10^6/uL (4.20-5.40); RED CELL DISTRIBUTION WIDTH 13.3 % (12.0-15.0); WHITE BLOOD COUNT 8.1 x10^3/uL (4.8-10.8)
[2022-08-11 11:37] LABS: ALBUMIN 3.6 g/dL (3.2-5.5); ALBUMIN/GLOBULIN RATIO 0.8 (1.0-2.2); ALKALINE PHOSPHATASE 97 IU/L (42-121); ALT ALANINE AMINOTRANSFERASE 26 IU/L (10-60); AST ASPARTATE AMINOTRANSFERASE 28 IU/L (10-42); BILIRUBIN,TOTAL 0.5 mg/dL (0.2-1.0); BUN - BLOOD UREA NITROGEN 18 mg/dL (6-20); CALCIUM 8.9 mg/dL (8.5-10.3); CARBON DIOXIDE - CO2 28 mmol/L (21-32); CHLORIDE 106 mmol/L (101-111); CHOL/HDL RATIO 3.1 (<4.4); CHOLESTEROL 150 mg/dL; CREATININE 0.6 mg/dL (0.4-1.0); GFR - MDRD 100 (>89); GLUCOSE 83 mg/dL (70-100); HDL CHOLESTEROL 48 mg/dL; LDL CHOLESTEROL,CALCULATED 88 mg/dL; LDL/HDL RATIO 1.8 (<4.4); SODIUM 142 mmol/L (135-145); TRIGLYCERIDES 70 mg/dL; VLDL CHOLESTEROL 14 mg/dL
[2022-08-11 11:38] LABS: CREATININE,URINE 474.5 mg/dL; MICROALBUM/CREATININE RATIO,UR 4.6 ug/mg (<30.0); MICROALBUMIN,URINE 2.2 mg/dL (0-300.0)
[2022-08-11 11:42] LABS: THYROID STIMULATING HORMONE 1.64 uIU/mL (0.34-5.60)
[2022-08-11 12:12] LABS: ESTIMATED AVERAGE GLUCOSE 174 mg/dL (70-100); HEMOGLOBIN A1c% 7.7 % (4.27-6.07)
== END 2022-08-11 10:31 | disposition home or self-care (01) ==
LOC: LAB 10:30
PROVIDERS: ATTEND Nurse Practitioner
DX: E11.8 Type 2 diabetes mellitus with unspecified complications (principal); E78.2 Mixed hyperlipidemia; I10 Essential (primary) hypertension
CPT/HCPCS: 36415; 80053; 80061; 82043; 82570; 83036; 83721; 84443; 85025

== ENCOUNTER 2022-09-06 14:55 | Outpatient (CLI) | payer MEDICARE, OTHER ==
--- NOTE | 2022-09-06 21:05 | XRAY Report ---
PROCEDURE: Ankle 3 View RT INDICATIONS: ACUTE RT ANKLE PAIN TECHNIQUE: 3 views of the ankle were acquired. COMPARISON: Bilateral foot radiographs 01/27/2021 FINDINGS: Bones: No fractures or dislocations. Ankle mortise is normally aligned. No suspicious bony lesions . Soft tissues: No tibiotalar joint effusion. IMPRESSION: No acute bony abnormality. If there remains a high clinical concern for fracture, consider cross-sect ional imaging now. If pain persists, consider repeat x-ray in 10-14 days or cross-sectional imaging. Reviewed by: Adam Moore MD on 09/06/2022 9:04 PM PDT Approved by: Adam Moore MD on 09/06/2022 9:04 PM PDT Station ID: [id number]
== END 2022-09-06 14:56 | disposition home or self-care (01) ==
LOC: DI 14:55
PROVIDERS: ATTEND Podiatrist
DX: M25.571 Pain in right ankle and joints of right foot (principal)

== ENCOUNTER 2022-09-16 07:03 | Outpatient (CLI) | payer MEDICARE, OTHER ==
--- NOTE | 2022-09-16 16:58 | MRI Report ---
PROCEDURE: ANKLE WO - RT INDICATIONS: RIGHT ANKLE PAIN TECHNIQUE: Noncontrast sagittal T1 spin echo and T2 fast spin echo with fat saturation, axial proton density fas t spin echo and T2 fast spin echo with fat saturation, coronal T1 spin echo and T2 fast spin echo wit h fat saturation through the ankle/hindfoot. COMPARISON: Ankle radiograph dated 09/06/2022. FINDINGS: Image quality: Excellent. Bones and joints: Mild midfoot and hindfoot joint osteoarthritis is seen. No marrow edema. No hindfoo t coalitions. No osteochondral injuries of the talar dome. Small subtalar joint and tibiotalar joint effusion is seen. Medial structures: The posterior tibialis is significantly thickened at the level of medial malleolu s extending to the level of talonavicular joint with small amount of fluid distending tendon sheath. The flexor digitorum longus, and flexor hallucis longus tendons are intact. The posterior tibial silvia rovascular bundle appears normal within the tarsal tunnel, without extrinsic mass effect. The deep l tami (anterior and posterior tibiotalar ligaments) and superficial layer (tibionavicular, tibiospring , and tibiocalcaneal ligaments) of the deltoid ligament appear normal. The spring ligament component s (superomedial calcaneonavicular, medioplantar oblique calcaneonavicular, and inferoplantar longitud inal ligaments) are intact. Lateral structures: The anterior talofibular, calcaneofibular, and posterior talofibular ligaments a ppear mildly thickened with intrasubstance T2 hyperintense signal. More superiorly, the anterior and posterior tibiofibular ligaments appear normal, as is the intermalleolar ligament. The tibiofibular syndesmosis is normal in width at 2 mm or less. The peroneus longus and brevis tendons demonstrate normal location and morphology. Adjacent bony peroneal tubercle and retrotrochlear prominence are no rmal in size. The sinus tarsi demonstrates normal fatty signal, without edema, fibrosis, or cyst for mation. Visualized sinus tarsi components (cervical ligament, interosseous talocalcaneal ligament, r oots of the inferior extensor retinaculum) appear normal. Anterior structures: The tibialis anterior, extensor hallucis longus, and extensor digitorum longus tendons appear intact. Posterior and plantar structures: Achilles tendon is intact. Medial and lateral bands of the planta r fascia are of normal thickness. No abductor digiti quinti muscle atrophy to suggest Bermudez neuropa thy. IMPRESSION: 1. Mild midfoot and hindfoot joint osteoarthritis. No fracture or dislocation. No evidence of osteoch ondral injuries of talar dome. Small tibiotalar and subtalar joint effusion, no loose bodies. 2. Low to moderate grade tenosynovitis involving posterior tibialis tendon as above. Rest of the ankl e tendons are intact. 3. Low-grade sprain/intrasubstance partial thickness tear involving anterior and posterior talofibula r ligaments and calcaneofibular ligament. Reviewed by: Zachary Lloyd MD on 09/16/2022 4:56 PM PDT Approved by: Zachary Lloyd MD on 09/16/2022 4:56 PM PDT Station ID: [id number]
== END 2022-09-16 07:04 | disposition home or self-care (01) ==
LOC: DI 07:03
PROVIDERS: ATTEND Podiatrist
DX: M19.071 Primary osteoarthritis, right ankle and foot (principal); M65.9 Synovitis and tenosynovitis, unspecified; M25.471 Effusion, right ankle; S93.411A Sprain of calcaneofibular ligament of right ankle, initial encounter; S93.491A Sprain of other ligament of right ankle, initial encounter

== ENCOUNTER 2023-02-17 08:09 | Outpatient (CLI) | payer MEDICARE, OTHER ==
[2023-02-17 10:12] LABS: ESTIMATED AVERAGE GLUCOSE 171 mg/dL (70-100); HEMOGLOBIN A1c% 7.6 % (4.27-6.07)
== END 2023-02-17 08:10 | disposition home or self-care (01) ==
LOC: LAB 08:09
PROVIDERS: ATTEND Nurse Practitioner
DX: E11.8 Type 2 diabetes mellitus with unspecified complications (principal)
CPT/HCPCS: 36415; 83036

== ENCOUNTER 2023-04-14 08:00 | Outpatient (CLI) | payer MEDICARE, OTHER | END 2023-04-14 23:59 | disposition home or self-care (01) | LOC: LAB.S 08:00 | PROVIDERS: ATTEND Registered Nurse | DX: R82.79 Other abnormal findings on microbiological examination of urine (principal) | CPT/HCPCS: 87086; 87181 ==

== ENCOUNTER 2023-06-13 08:00 | Outpatient (CLI) | payer MEDICARE, OTHER ==
[2023-06-13 19:14] LABS: BILIRUBIN,URINE NEGATIVE (NEGATIVE); GLUCOSE, URINE (UA) NEGATIVE (NEGATIVE); KETONES,URINE (UA) NEGATIVE (NEGATIVE); LEUKOCYTE ESTERASE, URINE TRACE (NEGATIVE); NITRITE,URINE NEGATIVE (NEGATIVE); OCCULT BLOOD,URINE NEGATIVE (NEGATIVE); PH,URINE 5.5 PH (5.0-7.5); PROTEIN,URINE NEGATIVE (NEGATIVE); UROBILINOGEN,URINE 1 (NORMAL) E.U./dL (NORMAL)
[2023-06-13 19:19] LABS: CLARITY,URINE CLOUDY (CLEAR)
[2023-06-13 19:36] LABS: AMORPHOUS SEDIMENT,UR Marked /LPF; BACTERIA,URINE Rare /HPF (None Seen); RBC,URINE None Seen /HPF (0-5); SQUAMOUS EPITHELIAL CELL,UR RARE Squamous (<= Few); WBC,URINE 0-3 /HPF (0-5)
== END 2023-06-13 23:59 | disposition home or self-care (01) ==
LOC: LAB.WCP 08:00
PROVIDERS: ATTEND Nurse Practitioner
DX: R30.0 Dysuria (principal)
CPT/HCPCS: 81001; 87077; 87086; 87181

== ENCOUNTER 2023-10-05 07:10 | Outpatient (CLI) | payer MEDICARE, OTHER ==
[2023-10-05 14:56] LABS: BASOPHILS % (AUTO) 0.7 %; EOSINOPHILS # (AUTO) 0.2 10^3/uL (0.0-0.7); EOSINOPHILS % (AUTO) 2.8 %; HCT - HEMATOCRIT 36.2 % (37.0-47.0); HGB - HEMOGLOBIN 10.9 g/dL (12.0-16.0); LYMPHOCYTES # (AUTO) 2.4 10^3/uL (1.5-3.5); LYMPHOCYTES % (AUTO) 38.9 %; MEAN CORPUSCULAR HEMOGLOBIN 29.1 pg (27.0-31.0); MEAN CORPUSCULAR HGB CONC 30.1 g/dL (32.0-36.0); MEAN CORPUSCULAR VOLUME 96.8 fL (81.0-99.0); MEAN PLATELET VOLUME 9.9 fL (7.9-10.8); MONOCYTES # (AUTO) 0.4 10^3/uL (0.0-1.0); MONOCYTES % (AUTO) 7.2 %; NEUTROPHILS # (AUTO) 3.1 10^3/uL (1.5-6.6); NEUTROPHILS % (AUTO) 50.2 %; PLT - PLATELET COUNT 250 10^3/uL (130-450); RED BLOOD COUNT 3.74 10^6/uL (4.20-5.40); RED CELL DISTRIBUTION WIDTH 13.7 % (12.0-15.0); WHITE BLOOD COUNT 6.1 x10^3/uL (4.8-10.8)
[2023-10-05 15:28] LABS: ALBUMIN/GLOBULIN RATIO 1.2 (1.0-2.2); ALKALINE PHOSPHATASE 83 IU/L (42-121); ALT ALANINE AMINOTRANSFERASE 12 IU/L (10-60); AST ASPARTATE AMINOTRANSFERASE 20 IU/L (10-42); BILIRUBIN,TOTAL 0.5 mg/dL (0.2-1.0); BUN - BLOOD UREA NITROGEN 24 mg/dL (6-20); CALCIUM 9.2 mg/dL (8.5-10.3); CARBON DIOXIDE - CO2 30 mmol/L (21-32); CHLORIDE 105 mmol/L (101-111); CHOL/HDL RATIO 2.5 (<4.4); CHOLESTEROL 145 mg/dL; CREATININE 0.7 mg/dL (0.6-1.3); GFR - MDRD 83 (>89); GLUCOSE 79 mg/dL (74-104); HDL CHOLESTEROL 58 mg/dL; LDL CHOLESTEROL,CALCULATED 73 mg/dL; LDL/HDL RATIO 1.3 (<4.4); POTASSIUM 4.5 mmol/L (3.5-4.5); SODIUM 140 mmol/L (135-145); TOTAL PROTEIN 7.4 g/dL (6.4-8.9); TRIGLYCERIDES 72 mg/dL (48-352); VLDL CHOLESTEROL 14 mg/dL
[2023-10-05 16:02] LABS: CREATININE,URINE 132.1 mg/dL
[2023-10-05 16:10] LABS: MICROALBUMIN,URINE < 0.7 mg/dL
[2023-10-05 20:04] LABS: ESTIMATED AVERAGE GLUCOSE 169 mg/dL (70-100); HEMOGLOBIN A1c% 7.5 % (4.27-6.07)
== END 2023-10-05 07:11 | disposition home or self-care (01) ==
LOC: LAB.S 07:10
PROVIDERS: ATTEND Nurse Practitioner
DX: E11.42 Type 2 diabetes mellitus with diabetic polyneuropathy (principal); E78.2 Mixed hyperlipidemia; I10 Essential (primary) hypertension
CPT/HCPCS: 36415; 80053; 80061; 82043; 82570; 83036; 83721; 85025

== ENCOUNTER 2023-12-28 15:08 | Outpatient (CLI) | payer MEDICARE, OTHER ==
[2023-12-28 15:42] LABS: BASOPHILS # (AUTO) 0.1 10^3/uL (0.0-0.1); BASOPHILS % (AUTO) 0.7 %; EOSINOPHILS # (AUTO) 0.2 10^3/uL (0.0-0.7); EOSINOPHILS % (AUTO) 2.8 %; HCT - HEMATOCRIT 33.8 % (37.0-47.0); HGB - HEMOGLOBIN 10.7 g/dL (12.0-16.0); LYMPHOCYTES % (AUTO) 40.5 %; MEAN CORPUSCULAR HEMOGLOBIN 29.5 pg (27.0-31.0); MEAN CORPUSCULAR HGB CONC 31.7 g/dL (32.0-36.0); MEAN CORPUSCULAR VOLUME 93.1 fL (81.0-99.0); MEAN PLATELET VOLUME 9.3 fL (7.9-10.8); MONOCYTES # (AUTO) 0.6 10^3/uL (0.0-1.0); MONOCYTES % (AUTO) 7.8 %; NEUTROPHILS # (AUTO) 3.6 10^3/uL (1.5-6.6); NEUTROPHILS % (AUTO) 48.1 %; PLT - PLATELET COUNT 215 10^3/uL (130-450); RED BLOOD COUNT 3.63 10^6/uL (4.20-5.40); RED CELL DISTRIBUTION WIDTH 13.3 % (12.0-15.0); WHITE BLOOD COUNT 7.4 x10^3/uL (4.8-10.8)
[2023-12-28 16:04] LABS: THYROID STIMULATING HORMONE 2.77 uIU/mL (0.34-5.60)
[2023-12-29 20:09] LABS: KAPPA FREE LT CHAINS SERUM 39.5 mg/L (3.3-19.4); KAPPA/LAMBDA RATIO SERUM 0.98 (0.26-1.65); LAMBDA FREE LT CHAINS SERUM 40.3 mg/L (5.7-26.3)
== END 2023-12-28 15:09 | disposition home or self-care (01) ==
LOC: LAB 15:08
PROVIDERS: ATTEND Psychiatry & Neurology Neurology
DX: G20.A2 Parkinson's disease without dyskinesia, with fluctuations (principal); R53.83 Other fatigue; G62.9 Polyneuropathy, unspecified
CPT/HCPCS: 36415; 82607; 82728; 82746; 82784; 83521; 84155; 84165; 84443; 85025; 86334